=== PATIENT | female | born 1980 | race Two or more races ===

== ENCOUNTER 2024-09-02 09:42 | Emergency (ER) | payer OTHER, SELFPAY ==
[2024-09-02 10:14] VITALS: BP 130/85; PULSE 77; RESP 16; TEMP 36.7; O2SAT 100; BMI 31.1
--- NOTE | 2024-09-02 11:22 | EDNOTE_ITS ---
<Statement entered by Ania Drake MD - 09/08/24 17:56> As co-signing physician, I was present and available for consult prn. I concur with the plan and care as documented by the midlevel provider. Lower Extremity Injury RME/HPI General Chief Complaint: Extremity Injury, Lower Stated Complaint: Right knee pain from fall Time Seen by Provider: 09/02/24 10:29 Source: patient Arrival date/time: 09/02/24 09:42 This is a 44-year-old female who presents to the emergency department with complaints of right anterior knee pain since 08/26/2024. 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 Reported intermittent pain to right knee, worsened with ambulation. Patient did not attempt any interventions or take any OTC medications prior to ED visit. Related Data Home Medications ?Medication ?Instructions ?Recorded ?Confirmed No Known Home Medications 07/14/24 07/14/24 Allergies Allergy/AdvReac Type Severity Reaction Status Date / Time No Known Allergies Allergy Verified 07/15/24 08:50 Review of Systems Review of Systems Systems Reviewed: All systems reviewed, normal except as documented Narrative Review of Systems: Gen: No fever, no chills, no weight loss EYES: No discharge, no visual changes, no pain HEENT: No ear pain, no congestion, no sore throat PULM: No shortness of breath, no cough, no congestion CV: No chest pain, no dyspnea on exertion, no palpitations GI: No nausea, no vomiting, no diarrhea, no pain, no constipation : No frequency, no urgency,? no dysuria Musc/skel: Right knee pain pain, no back pain Skin: No rash? Psyc: No hallucinations, no depression Heme/Lymph: No easy bleeding or bruising tendencies Neuro: No weakness, no headache ED Exam Narrative Physical exam: General: Sittiing in Exam table in no acute distress, answering questions appropriately HENT: normocephalic, atraumatic, EOMI, PERRLA, moist mucous membranes Chest: chest wall is nontender Cardiac: regular rate and rhythm, normal S1 and S2, no murmurs, rubs, or gallops, capillary refill ?2 seconds Pulmonary: clear to auscultation bilaterally, no wheezing, crackles, or rhonchi Abdominal: active bowel sounds, soft, nontender, nondistended Neuro: A&OX3, CN II-XII intact, sensation grossly intact bilaterally in UE and LE. Skin: no rashes, no ecchymosis Ext: +right anterior knee pain. neg laxity. Course Quality Measures none Orders Category Date Time Status XR knee RT 3V Stat Exams 09/02/24 11:21 Completed Ketorolac Inj [Toradol Inj] Med 09/02/24 11:21 Discontinued 60 mg IM X1 ONE Vital Signs Vital signs: Vital Signs Temperature 98.0 F 09/02/24 10:14 Pulse Rate 77 09/02/24 10:14 Respiratory Rate 16 09/02/24 10:14 Blood Pressure 130/85 H 09/02/24 10:14 Pulse Oximetry (%) 100 09/02/24 10:14 Oxygen Delivery Method Room Air 09/02/24 10:14 Extremity Injury, Lower MDM Narrative MDM Narrative:: Clinical presentation appears to be that of Knee contusion rest. Knee xray reveals no small effusion or no acute fracture. Will Dc home with crutches, knee brace and analgesic. Patient instructed to allow your injury to heal before you do slow movements. Prop your knee on pillows to help with swelling. Please follow up with Primary Doctor/workers comp in 48 hrs. Please return to ER if any worsening symptoms. Patient data External records reviewed:: [facility] previous records Clinical information provided by:: patient Social determinants that could affect healthcare access:: none Patient has the following chronic illnesses:: none How is presenting disease/condition affected by chronic disease/condition?: no chronic disease Evaluation data The following diagnostics were reviewed and interpreted by me:: radiology exam(s) Lab and/or radiology exams considered but not ordered:: none Interpretation Summary: Examination: Knee, right , 3 views Technique: Knee AP, lateral, oblique 3 views Date and time of exam: September 02, 2024 1146 hours INDICATIONS: Right knee pain months FINDINGS: Mild osteopenia Mild narrowing medial joint space Early osteoarthritis patellofemoral joint No fracture IMPRESSION: Early osteoarthritis Medications / Prescriptions Medications or Prescriptions considered but not ordered:: none Medication administrations:: Medication Administration History Discontinued Medications Ketorolac Tromethamine (Ketorolac Inj 60 Mg/2 Ml Vial) 60 mg IM X1 ONE Stop: 09/02/24 11:22 Last Admin: 12/26/24 11:32 Dose: 60 mg Documented By: ALIREZA all meds administered and effective Consultations Consultation(s) initiated? (list below): No Diagnosis Extremity Injury, Lower Differential Diagnosis: other Most likely diagnosis given after review of the tests above:: Contusion of the knee Admission Indicated Admission indicated?: not indicated Explain why admission is indicated or not indicated:: none Admission Request Was there a request for admission?: No Disposition Plan Disposition Plan: Discharge Discharge Attestation Discharge Attestation: The patient and all family members were given an opportunity to ask questions and understood the discharge instructions. Discharge instructions specifically effects, indications for sooner follow up or return to the emergency department, and the expected course of current diagnosis. Patient condition: Stable Discharge Plan Plan Patient Disposition: HOME (Self Care) Prescriptions/Referrals Prescriptions/Med Rec: No Action No Known Home Medications Referrals: No Primary/Family,Physician [Primary Care Provider] - In 1 week Problem List Clinical Impression: Contusion of knee Patient/Caregiver Discharge Instructions Discharge Activity: activity as tolerated Education Materials: ED Contusion, Lower Extremity Additional Instructions: X-ray does not show any broken bones. Please allow your injury to heal before you do slow movements. Place an ice pack or a bag of frozen peas wrapped in a towel over the painful part. Never put ice right on the skin. Do not leave the ice on more than 10 to 15 minutes at a time. Ice after activity may help decrease pain and swelling. Never ice before stretching. Prop your knee on pillows to help with swelling. Please keep your appointment with your primary doctor or Worker's Comp. doctor. Please return to ER if any worsening symptoms. Print Language: Greenlandic Stand Alone Forms: Lori Award Info., Work/School Release, Patient Portal Info Letter LINDA/JOSE MARTIN Supervising Physician LINDA/JOSE MARTIN Supervising Physician: dr Drake
[2024-09-02] MEDS: KETOROLAC INJ 60 MG/2 ML VIAL IM (11:32)
== END 2024-09-02 14:18 | disposition home or self-care (01) ==
PROVIDERS: Emergency Provider Emergency Medicine
DX: S80.01XA Contusion of right knee, initial encounter (principal); M17.11 Unilateral primary osteoarthritis, right knee; W01.0XXA Fall on same level from slipping, tripping and stumbling without subsequent striking against object, initial encounter; Y93.E5 Activity, floor mopping and cleaning; Y99.0 Civilian activity done for income or pay
CPT/HCPCS: 73562; 96372; 99283; J1885